=== PATIENT | female | born 2000 | race Caucasian/White ===

== ENCOUNTER 2020-05-11 19:22 | Emergency (ER) | payer OTHER ==
--- NOTE | 2020-05-11 20:06 | ER Document Report ---
ED Medical Screen (RME) - General Chief Complaint: Vag Bleeding, +preg <12wks Stated Complaint: VAGINAL BLEEDING Time Seen by Provider: 05/11/20 20:03 Mode of Arrival: Ambulatory Information source: Patient Notes: 19-year-old female presented to ED for complaint of positive test last night and woke up vaginal bleeding this morning. She states she was having cramps off and on but does not have any right now. She is alert oriented respirations regular nonlabored speaking in full sentences. She is 2 para 1. She does have a history of high blood pressure and . She states her last menstrual period was April 19, 2020. I have greeted and performed a rapid initial assessment of this patient. A comprehensive ED assessment and evaluation of the patient, analysis of test results and completion of medical decision making process will be conducted by an additional ED providers. Physical Exam - Vital signs Vitals: Temp Pulse Resp BP Pulse Ox 98.8 F 100 H 18 156/103 H 99 05/11/20 19:50 05/11/20 19:50 05/11/20 19:50 05/11/20 19:50 05/11/20 19:50 Course - Vital Signs Vital signs: Temp Pulse Resp BP Pulse Ox 98.8 F 100 H 18 156/103 H 99 05/11/20 19:50 05/11/20 19:50 05/11/20 19:50 05/11/20 19:50 05/11/20 19:50
--- NOTE | 2020-05-11 21:15 | RADIOLOGY REPORT (SQ) ---
US PELVIS HISTORY: Positive test. COMPARISON: None. TECHNIQUE: Grayscale, color Doppler, and spectral Doppler ultrasound images of the pelvis were obtained. FINDINGS: The uterus is anteverted and measures 6.9 x 4.0 x 3.1 cm. No intrauterine gestational sac. The endometrium is 6 mm in thickness. Cervix is 2 cm and is closed. Both ovaries are normal in size and contain normal follicles, with the right ovary measuring 2.7 x 2.6 cm and the left ovary measuring 2.6 x 2.6 cm. Normal color Doppler blood flow is seen in both ovaries. Minimal free fluid in the left adnexa. IMPRESSION: No intrauterine is seen. Correlate with beta hCG values and consider short-term follow-up ultrasound imaging.
[2020-05-11 21:38] LABS: ABSOLUTE BASOPHILS # (AUTO) 0.1 10^3/uL (0.0-0.2); ABSOLUTE EOSINOPHILS # (AUTO) 0.2 10^3/uL (0.0-0.6); ABSOLUTE LYMPHOCYTES (AUTO) 2.2 10^3/uL (0.5-4.7); ABSOLUTE MONOCYTES (AUTO) 0.6 10^3/uL (0.1-1.4); ABSOLUTE NEUT (AUTO) 4.3 10^3/uL (1.7-8.2); BASOPHILS % (AUTO) 0.8 % (0-2); EOSINOPHILS % (AUTO) 2.8 % (0-6); HEMATOCRIT 43.5 % (36.0-47.0); HEMOGLOBIN 14.8 g/dL (12.0-15.5); LYMPHOCYTES % (AUTO) 30.2 % (13-45); MEAN CORPUSCULAR HEMOGLOBIN 27.6 pg (27.0-33.4); MEAN CORPUSCULAR VOLUME 81 fl (80-97); PLATELET COUNT 476 10^3/uL (150-450); RED BLOOD COUNT 5.36 10^6/uL (3.72-5.28); RED CELL DISTRIBUTION WIDTH 13.9 % (11.5-14.0); SEGMENTED NEUTROPHILS % (AUTO) 58.2 % (42-78); TOTAL CELLS COUNTED % (AUTO) 100 %; WHITE BLOOD COUNT 7.4 10^3/uL (4.0-10.5)
[2020-05-11 21:43] LABS: APPEARANCE,URINE CLEAR; BILIRUBIN,URINE NEGATIVE (NEGATIVE); COLOR,URINE YELLOW; GLUCOSE, URINE NEGATIVE (NEGATIVE); KETONES,URINE NEGATIVE (NEGATIVE); LEUKOCYTE ESTERASE,URINE NEGATIVE (NEGATIVE); NITRITE,URINE NEGATIVE (NEGATIVE); PROTEIN,URINE NEGATIVE (NEGATIVE); URINE SPECIFIC GRAVITY 1.023
[2020-05-11 21:45] LABS: INTERNATIONAL RATION (INR) 0.94; PROTHROMBIN TIME 12.8 SEC (11.4-15.4)
[2020-05-11 21:56] LABS: ALBUMIN 4.5 g/dL (3.7-5.6); ALKALINE PHOSPHATASE 79 U/L (50-135); ANION GAP 6 (5-19); ASPARTATE AMINO TRANSFERASE 21 U/L (5-30); BILIRUBIN,TOTAL 0.4 mg/dL (0.2-1.3); BLOOD UREA NITROGEN 11 mg/dL (7-20); CALCIUM 9.4 mg/dL (8.4-10.2); CARBON DIOXIDE 26 mmol/L (22-30); CHLORIDE 104 mmol/L (98-107); GLUCOSE 87 mg/dL (75-110); POTASSIUM 4.4 mmol/L (3.6-5.0); TOTAL PROTEIN 7.8 g/dL (6.3-8.2)
--- NOTE | 2020-05-11 23:51 | ER Document Report ---
ED GI/ - General Chief Complaint: Vag Bleeding, +preg <12wks Stated Complaint: VAGINAL BLEEDING Time Seen by Provider: 05/11/20 20:03 Mode of Arrival: Ambulatory - [facility] Notes: 05/12/20 03:45 19-year-old female presents with vaginal bleeding. Patient reports that her last menstrual cycle was on April 19. She states that last night she developed some light vaginal bleeding, described as passing little clots. This prompted her to take a home test. She reports that it was faintly positive. Today she has had more vaginal bleeding with some lower abdominal cramping. She states that she called her [facility]BR[facility]ERY C[facility]TER and was advised to come to the ED for evaluation. - Related Data Allergies/Adverse Reactions: No Known Allergies Allergy (Unverified 05/11/20 20:05) Home Medications: denies Past Medical History - General Information source: Patient - Social History Smoking Status: Never Smoker Chew tobacco use (# tins/day): No Frequency of alcohol use: None Drug Abuse: None Family History: Reviewed & Not Pertinent Patient has homicidal ideation: No Review of Systems - Review of Systems Constitutional: No symptoms reported EENT: No symptoms reported Cardiovascular: No symptoms reported Respiratory: No symptoms reported Gastrointestinal: denies: Nausea, Vomiting Genitourinary: denies: Dysuria Female Genitourinary: Irregular period. denies: Vaginal discharge Musculoskeletal: No symptoms reported Skin: No symptoms reported Hematologic/Lymphatic: No symptoms reported Neurological/Psychological: No symptoms reported Physical Exam - Vital signs Vitals: Temp Pulse Resp BP Pulse Ox 98.8 F 100 H 18 156/103 H 99 05/11/20 19:50 05/11/20 19:50 05/11/20 19:50 05/11/20 19:50 05/11/20 19:50 Interpretation: Normal - General General appearance: Appears well In distress: None - HEENT Head: Normocephalic, Atraumatic Pupils: PERRL - Respiratory Breath sounds: Normal - Cardiovascular Rhythm: Regular Heart sounds: Normal auscultation - Abdominal Inspection: Obese Bowel sounds: Normal Tenderness: Nontender - Genitourinary Notes: Patient declined pelvic examination - Extremities General upper extremity: Normal inspection General lower extremity: Normal inspection - Neurological Neuro grossly intact: Yes Cognition: Normal Orientation: AAOx4 - Psychological Associated symptoms: Normal affect - Skin Skin Temperature: Warm Course - Re-evaluation Re-evalutation: 05/12/20 00:12 19-year-old female with vaginal bleeding in setting of positive test at home yesterday. Through the triage process, she received a pelvic ultrasound which did not demonstrate IUP. Additionally her hormone level was undetectable. Patient declined pelvic exam. She is well-appearing, afebrile with stable vitals. Nontender abdomen. Discussed with her a likely spontaneous has occurred. Given the irregularity of her periods, possible she may be having some DUB. She states that she will follow-up with her [facility]BR[facility]ERY C[facility]TER. Return precautions were discussed, stable at time of discharge. - Vital Signs Vital signs: Temp Pulse Resp BP Pulse Ox 98.8 F 97 H 18 146/90 H 100 05/11/20 19:50 05/12/20 00:30 05/12/20 00:30 05/12/20 00:30 05/12/20 00:30 - Laboratory Result Diagrams: 05/11/20 21:15 05/11/20 21:15 Laboratory results interpreted by me: 05/11/20 05/11/20 05/11/20 20:52 21:15 21:15 RBC 5.36 H Plt Count 476 H Sodium 136.4 L Urine Blood MODERATE H Urine Urobilinogen 4.0 H 05/11/20 23:53 No leukocytosis. No acute anemia. Beta hCG quant is not detected. Rh+. Urine with blood as expected, no UTI. Discharge - Discharge Clinical Impression: examination or test, negative result Condition: Stable Disposition: HOME, SELF-CARE Additional Instructions: As discussed during your visit, your ultrasound did not show an intrauterine and the hormone test was negative. Please touch base with your EMBROIDERY CUTTER. You can continue ibuprofen for cramping. Please return to the ED for fever, chills, abnormal vaginal discharge or any other concerning symptoms.
[2020-05-12] MEDS ORDERED: IBUPROFEN 800 MG TABLET PO ONE (00:09)
[2020-05-12 00:37] VITALS: BP 146/90
== END 2020-05-12 00:37 | disposition home or self-care (01) ==
LOC: ER 19:22
DX: Z32.02 Encounter for pregnancy test, result negative (principal); N92.6 Irregular menstruation, unspecified; R10.30 Lower abdominal pain, unspecified
CPT/HCPCS: 36415; 76817; 80053; 81001; 84702; 85025; 85610; 86900; 86901; 99284